=== PATIENT | female | born 1980 | race Caucasian/White ===

== ENCOUNTER 2017-11-28 12:26 | Emergency (ER) | payer OTHER ==
[2017-11-28 12:38] VITALS: BP 126/83; PULSE 92; RESP 18; TEMP 98.2
--- NOTE | 2017-11-28 12:54 | ED ---
Eye Problem HPI - General Chief complaint: Eye Problems Stated complaint: Eye Swelling, Rash Time Seen by Provider: 11/28/17 12:41 Source: patient, RN notes reviewed, old records reviewed Mode of arrival: ambulatory Limitations: no limitations - History of Present Illness Initial comments: Patient is a 37-year-old female presents emergency Department with left eye pain and swelling. She has a stye. She said history of styes before. She's been doing warm compresses over the area with little improvement. Patient states that she has no pain with extraocular eye movements. Denies any significant headache. She does have a history of a stroke, and she does have poor right vision since that time. However her affected eye with the swelling is simply her good eye. Patient states that she had a minor drainage from the eye. Patient denies any fever or chills.Patient denies any recent fever, chills , shortness of breath, chest pain, back pain, abdominal pain, nausea vomiting, numbness or tingling, dysuria or hematuria, constipation or diarrhea, headaches or any other current symptoms - Related Data Previous Rx's Medication Instructions Recorded Cephalexin [Keflex] 500 mg PO Q8HR #21 cap 11/28/17 Erythromycin Ophth Oint [Romycin 1 applic LEFT EYE QID #1 tube 11/28/17 Ophth Oint] Hydrocortisone Cream 1 applic TOPICAL BID #60 gm 11/28/17 [Hydrocortisone 1% Cream] Allergies Allergy/AdvReac Type Severity Reaction Status Date / Time No Known Allergies Allergy Verified 11/28/17 12:37 Review of Systems ROS Statement: Those systems with pertinent positive or pertinent negative responses have been documented in the HPI. ROS Other: All systems not noted in ROS Statement are negative. Past Medical History Past Medical History: No Reported History Additional Past Medical History / Comment(s): vertigo History of Any Multi-Drug Resistant Organisms: None Reported Past Surgical History: Appendectomy, Section, Cholecystectomy Past Psychological History: No Psychological Hx Reported Smoking Status: Current every day smoker Past Alcohol Use History: None Reported Past Drug Use History: Marijuana General Exam - General Exam Comments Initial Comments: Patient is a 37-year-old female. Alert and oriented. No significant distress. Limitations: no limitations General appearance: alert, in no apparent distress Head exam: Present: atraumatic, normocephalic, normal inspection Eye exam: Present: normal appearance, PERRL, EOMI, periorbital swelling ( Patient has minimal swelling over the left upper eyelid consistent with blepharitis.). Absent: scleral icterus, conjunctival injection ENT exam: Present: normal exam, normal oropharynx, mucous membranes moist Neck exam: Present: normal inspection. Absent: tenderness, meningismus, lymphadenopathy Respiratory exam: Present: normal lung sounds bilaterally. Absent: respiratory distress, wheezes, rales, rhonchi, stridor Cardiovascular Exam: Present: regular rate, normal rhythm, normal heart sounds. Absent: systolic murmur, diastolic murmur, rubs, gallop, clicks Neurological exam: Present: alert, oriented X3, CN II-XII intact Psychiatric exam: Present: normal affect, normal mood Skin exam: Present: warm, dry, intact, normal color, rash (Is a erythematous papular rash over the chest consistent with atopic dermatitis.) Course Vital Signs 11/28/17 12:34 Temperature 98.2 F Pulse Rate 92 Respiratory 18 Rate Blood Pressure 126/83 O2 Sat by Pulse 100 Oximetry Medical Decision Making - Medical Decision Making Patient is a 29-year-old female chief complaint of irritation over her left eye. She reports some swelling over the upper eyelid. No pain with extraocular eye movements. Patient's symptoms are consistent with blepharitis. She does report some minimal swelling over the periorbital region. Frandy the Patient on glass in eye ointment as well as Keflex. Discussed appropriate follow-up with primary care provider. All questions answered return parameters were discussed. Patient also completed a rash over her chest and arms consistent with atopic dermatitis. The Patient on hydrocortisone cream. Disposition Clinical Impression: Blepharitis of left upper eyelid, Atopic dermatitis Disposition: HOME SELF-CARE Condition: Good Instructions: Blepharitis (ED) Additional Instructions: Patient advised to apply that eye ointment to the eye as directed. Also take antibiotics as prescribed. Continue the warm compresses. She is a steroid cream over the areas of rash. Return to the emergency department if any alarming signs or symptoms occur. Prescriptions: Cephalexin [Keflex] 500 mg PO Q8HR #21 cap Erythromycin Ophth Oint [Romycin Ophth Oint] 1 applic LEFT EYE QID #1 tube Hydrocortisone Cream [Hydrocortisone 1% Cream] 1 applic TOPICAL BID #60 gm Is patient prescribed a controlled substance at d/c from ED?: No When asked, does pt state using other controlled substances?: No If prescribed controlled substance>3 days was MAPS reviewed?: No If opioid is for acute pain is fill amount 7 days or less?: No If Rx opioid, was Start Talking consent form obtained?: No Referrals: None,Stated [Primary Care Provider] - 1-2 days Narendra Fisher MD [STAFF PHYSICIAN] - 1-2 days Time of Disposition: 12:54
== END 2017-11-28 13:03 | disposition home or self-care (01) ==
LOC: EC 12:26
DX: H01.004 Unspecified blepharitis left upper eyelid (principal); L20.9 Atopic dermatitis, unspecified; F17.200 Nicotine dependence, unspecified, uncomplicated
CPT/HCPCS: 99283

== ENCOUNTER → 2020-01-17 | Outpatient (CLI) | payer OTHER ==
--- NOTE | 2020-01-17 16:19 | XR ---
EXAMINATION TYPE: XR lumbosacral spine min 4V DATE OF EXAM: 01/17/2020 COMPARISON: None HISTORY: Neck pain TECHNIQUE: Five-view lumbar spine FINDINGS: There 5 lumbar-type vertebral bodies. Pedicles are intact. Some disc space narrowing at L4- 5 is present. Remaining disc heights are preserved. Vertebral body heights are preserved.. IMPRESSION: 1. Mild L4-5 degenerative disc change
== END | disposition home or self-care (01) ==
LOC: RADXRMAIN 14:20
PROVIDERS: ATTEND Family Medicine
DX: M51.36 Other intervertebral disc degeneration, lumbar region (principal)
CPT/HCPCS: 72110

== ENCOUNTER → 2020-02-20 | Outpatient (CLI) | payer OTHER ==
[2020-02-20 15:44] LABS: T4, Free (Free Thyroxine) 0.9 ng/dL (0.80-1.80)
== END | disposition home or self-care (01) ==
LOC: LABWHC1 09:45
PROVIDERS: ATTEND Nurse Practitioner Family
DX: E04.1 Nontoxic single thyroid nodule (principal)
CPT/HCPCS: 36415; 84439; 84443; 84481

== ENCOUNTER → 2020-04-08 | Outpatient (CLI) | payer OTHER ==
--- NOTE | 2020-04-08 13:43 | MM ---
Reason for exam: screening (asymptomatic). Baseline mammogram. History: Family history of breast cancer in maternal grandmother and breast cancer in mother. Physical Findings: Nurse did not find any significant physical abnormalities on exam. MG Screening Mammo w CAD Bilateral CC and MLO view(s) were taken. The breast tissue is heterogeneously dense. This may lower the sensitivity of mammography. Asymmetric densities right CC view. Small asymmetric density medial left CC view. These results were verbally communicated with the patient and result sheet given to the patient on 04/08/20. ASSESSMENT: Incomplete: need additional imaging evaluation, BI-RAD 0 RECOMMENDATION: Special view mammogram of both breasts.
--- NOTE | 2020-04-08 13:45 | MM ---
Reason for exam: additional evaluation requested from abnormal screening. History: Family history of breast cancer in maternal grandmother and breast cancer in mother. Physical Findings: Breast exam preformed at baseline screening. MG Work Up Mamm w CAD BILAT Bilateral spot compression CC and LM view(s) were taken. The breast tissue is heterogeneously dense. This may lower the sensitivity of mammography. Right only the 1.1cm 12 o'clock focal asymmetry persists, ultrasound recommended. Tiny 4mm circumscribed nodularity medially persists but not identified on MLO or lateral. 6 month follow up recommended. These results were verbally communicated with the patient and result sheet given to the patient on 04/08/20. ASSESSMENT: Incomplete: need additional imaging evaluation, BI-RAD 0 RECOMMENDATION: Ultrasound of the right breast. (12 o'clock)
--- NOTE | 2020-04-08 13:48 | USB ---
Reason for exam: additional evaluation requested from abnormal screening. History: Family history of breast cancer in maternal grandmother and breast cancer in mother. US Breast Workup Limited RT Right limited breast ultrasound including focal area of concern, retroareolar and axilla demonstrates a 0.4 x 0.3 x 0.2cm oval, cystic lesion at 11 o'clock, duct ectasia at 12 o'clock, a 0.7 x 0.9 x 0.4cm oval, lymph node at 1 o'clock, may correspond to the questioned mammographic area and a 2.3 x 1.3 x 0.7cm lymph node at axilla. Right breast scanned 11-2 o'clock. 6 month follow up mammogram recommended to reassess the 12 o'clock site. These results were verbally communicated with the patient and result sheet given to the patient on 04/08/20. ASSESSMENT: Probably benign, BI-RAD 3 RECOMMENDATION: Follow-up diagnostic mammogram of the right breast in 6 months.
== END | disposition home or self-care (01) ==
LOC: RADMAMWWP 10:22
PROVIDERS: ATTEND Family Medicine
DX: Z12.31 Encounter for screening mammogram for malignant neoplasm of breast (principal); R92.8 Other abnormal and inconclusive findings on diagnostic imaging of breast
CPT/HCPCS: 77066; 77067

== ENCOUNTER → 2020-04-19 | Outpatient (CLI) | payer OTHER ==
--- NOTE | 2020-04-20 10:32 | US ---
EXAMINATION TYPE: US thyroid st tissue head/neck DATE OF EXAM: 04/19/2020 COMPARISON: NONE CLINICAL HISTORY: Thyroid Nodule. possible nodule GLAND SIZE: Right Lobe: 5.7 x 1.4 x 1.8 cm Overall Parenchyma: homogenous Left Lobe: 4.7 x 1.5 x 2.0 cm Overall Parenchyma: homogeneous Isthmus Thickness: 0.3 cm NODULES RIGHT: # of nodules measured on right: 1 1. 0.7 X 0.4 x 0.4 cm hypoechoic cystic nodule at the mid pole with well-defined margins; present w ith microcalcifications. This nodule is wider than tall and shows no intranodular vascularity. Prior size: no previous LEFT: # of nodules measured on left: 0 ISTHMUS: # of nodules measured in the isthmus: 0 Bilateral neck scanned, no evidence of lymphadenopathy. Homogeneous normal-sized thyroid with 7 mm cystic nodule upper pole right thyroid noted. IMPRESSION: As above. No suspicious greater than 1 cm solid nodule.
== END | disposition home or self-care (01) ==
LOC: RADUSWWP 15:57
PROVIDERS: ATTEND Psychiatry & Neurology Neurology
DX: E04.1 Nontoxic single thyroid nodule (principal)
CPT/HCPCS: 76536

== ENCOUNTER → 2020-12-26 | Outpatient (CLI) | payer OTHER ==
--- NOTE | 2020-12-27 14:48 | MM ---
Reason for exam: follow-up at short interval from prior study. Last mammogram was performed 9 months ago. History: Family history of breast cancer in maternal grandmother and breast cancer in mother. Physical Findings: Nurse did not find any significant physical abnormalities on exam. MG 3D Diag Mammo W/Cad RT CC and MLO view(s) were taken of the right breast. Prior study comparison: April 08, 2020, bilateral MG work up mamm w CAD BILAT. April 08, 2020, bilateral MG screening mammo w CAD. The breast tissue is heterogeneously dense. This may lower the sensitivity of mammography. Multiple stable right breast nodules. These results were verbally communicated with the patient and result sheet given to the patient on 12/26/20. ASSESSMENT: Incomplete: need additional imaging evaluation, BI-RAD 0 RECOMMENDATION: Ultrasound of the right breast. (whole breast)
--- NOTE | 2020-12-27 14:57 | USB ---
Reason for exam: additional evaluation requested from abnormal screening. History: Family history of breast cancer in maternal grandmother and breast cancer in mother. US Breast RT Right complete breast ultrasound includes all four quadrants, the retroareolar region and axilla. Finding demonstrates a 0.4 x 0.3 x 0.5cm cystic lesion at 2 o'clock and a 0.5 x 0.4 x 0.5cm cystic lesion at 10 o'clock. Simple cysts, benign appearing. These results were verbally communicated with the patient and result sheet given to the patient on 12/26/20. ASSESSMENT: Probably benign, BI-RAD 3 RECOMMENDATION: Follow-up diagnostic mammogram of both breasts in 3 months. Back on schedule for March 2021.
== END | disposition home or self-care (01) ==
LOC: RADMAMWWP 14:18
PROVIDERS: ATTEND Family Medicine
DX: N63.10 Unspecified lump in the right breast, unspecified quadrant (principal); N60.01 Solitary cyst of right breast; Z80.3 Family history of malignant neoplasm of breast
CPT/HCPCS: 77065; 76641; G0279; 77061

== ENCOUNTER 2021-01-28 09:00 | Emergency (ER) | payer OTHER ==
[2021-01-28 09:18] VITALS: BP 109/81; PULSE 87; RESP 18; TEMP 98.5
[2021-01-28] MEDS ORDERED: KETOROLAC 15 MG/ML 1 ML VIAL IM STA (10:38)
[2021-01-28] MEDS ORDERED: ORPHENADRINE 30 MG/ML 2 ML VIAL IM STA (10:38)
--- NOTE | 2021-01-28 10:49 | ED ---
General Adult HPI - General Chief complaint: Neck Pain/Injury Stated complaint: Neck Pain Time Seen by Provider: 01/28/21 10:21 Source: patient, RN notes reviewed Mode of arrival: ambulatory Limitations: no limitations - History of Present Illness Initial comments: 40-year-old female presents to the emergency room for left neck pain. Patient was in the shower washing her hair when she felt a tweak in her left side of her posterior neck. Patient states it is painful and spasming. States she cannot turn her neck to the left but can turn to the right a little bit. Patient denies fevers or chills. Denies any midline neck pain. States it does go into her left shoulder as well. Patient states this happened about 3 hours ago and she was supposed to go to jury duty but had to leave because of the pain.Patient has no other complaints at this time including shortness of breath, chest pain, abdominal pain, nausea or vomiting, headache, or visual changes. - Related Data Previous Rx's Medication Instructions Recorded Cephalexin [Keflex] 500 mg PO Q8HR #21 cap 11/28/17 Erythromycin Ophth Oint [Romycin 1 applic LEFT EYE QID #1 tube 11/28/17 Ophth Oint] Hydrocortisone Cream 1 applic TOPICAL BID #60 gm 11/28/17 [Hydrocortisone 1% Cream] Cyclobenzaprine [Flexeril] 10 mg PO TID #14 tab 01/28/21 Allergies Allergy/AdvReac Type Severity Reaction Status Date / Time No Known Allergies Allergy Verified 01/28/21 09:18 Review of Systems ROS Statement: Those systems with pertinent positive or pertinent negative responses have been documented in the HPI. ROS Other: All systems not noted in ROS Statement are negative. Past Medical History Past Medical History: No Reported History Additional Past Medical History / Comment(s): vertigo History of Any Multi-Drug Resistant Organisms: None Reported Past Surgical History: Appendectomy, Section, Cholecystectomy Additional Past Surgical History / Comment(s): colonoscopy Past Psychological History: No Psychological Hx Reported Smoking Status: Never smoker Past Alcohol Use History: None Reported Past Drug Use History: Marijuana General Exam Limitations: no limitations General appearance: alert, in no apparent distress Head exam: Present: atraumatic, normocephalic, normal inspection Eye exam: Present: normal appearance, PERRL, EOMI. Absent: scleral icterus, conjunctival injection, periorbital swelling ENT exam: Present: normal exam, mucous membranes moist Neck exam: Present: tenderness (Mild tenderness to the left cervical spine paraspinal muscles.). Absent: meningismus, full ROM (Patient able to turn her neck about 30 to the right. Patient unable to rotate her neck to the left.), lymphadenopathy Respiratory exam: Present: normal lung sounds bilaterally. Absent: respiratory distress, wheezes, rales, rhonchi, stridor Cardiovascular Exam: Present: regular rate, normal rhythm, normal heart sounds. Absent: systolic murmur, diastolic murmur, rubs, gallop, clicks Extremities exam: Present: normal capillary refill (Capillary refill less than 2 seconds, radial pulse 2+ in the left upper extremity) Course Vital Signs 01/28/21 09:12 Temperature 98.5 F Pulse Rate 87 Respiratory 18 Rate Blood Pressure 109/81 O2 Sat by Pulse 98 Oximetry Medical Decision Making - Medical Decision Making 40-year-old female presents for left neck pain. Vitals are stable. HPI and physical exam is documented. Clinically consistent with torticollis. Patient given Toradol and Norflex. Will be discharged home with muscle relaxer. Will follow up with primary care and orthopedics. Will return here for any worsening symptoms. Disposition Clinical Impression: Strain of neck muscle, Torticollis Disposition: HOME SELF-CARE Condition: Good Instructions (If sedation given, give patient instructions): Spasmodic Torticollis (ED) Additional Instructions: Take muscle relaxer as directed. Do not drive or operate machinery while taking muscle relaxer. Please follow-up with your doctor in one to 2 days. Return to the emergency room for any worsening symptoms. Prescriptions: Cyclobenzaprine [Flexeril] 10 mg PO TID #14 tab Is patient prescribed a controlled substance at d/c from ED?: No Referrals: Camacho Flor Jr, DO [Primary Care Provider] - 1-2 days Time of Disposition: 10:46
== END 2021-01-28 11:24 | disposition home or self-care (01) ==
LOC: EC 09:00
DX: S16.1XXA Strain of muscle, fascia and tendon at neck level, initial encounter (principal); M43.6 Torticollis; F12.90 Cannabis use, unspecified, uncomplicated; Z90.49 Acquired absence of other specified parts of digestive tract; X50.3XXA Overexertion from repetitive movements, initial encounter
CPT/HCPCS: 99283; 96372 ×2; J2360; J1885

== ENCOUNTER → 2021-04-10 | Outpatient (CLI) | payer OTHER ==
--- NOTE | 2021-04-11 08:38 | MM ---
Reason for exam: additional evaluation requested from prior study. Last mammogram was performed 3 months ago. History: Family history of breast cancer in maternal grandmother at age 60 and breast cancer in mother at age 58. Physical Findings: Nurse did not find any significant physical abnormalities on exam. MG 3D Diag Mammo W/Cad KRISTIE Bilateral CC, MLO, and XCCL view(s) were taken. Prior study comparison: December 26, 2020, right breast MG 3d diag mammo w/cad RT. April 08, 2020, bilateral MG work up mamm w CAD BILAT. The breast tissue is heterogeneously dense. This may lower the sensitivity of mammography. There is chronic nodularity in the right breast. The right nodularity is stable for 1 year. Additional 1 year follow up recommended. No significant new findings when compared with previous films. These results were verbally communicated with the patient and result sheet given to the patient on 04/10/21. ASSESSMENT: Probably benign, BI-RAD 3 RECOMMENDATION: Follow-up diagnostic mammogram of both breasts in 1 year. Manage patient on a clinical basis. If there is any recurrent palpable area in the left breast, the patient can return for ultrasound.
== END | disposition home or self-care (01) ==
LOC: RADMAMWWP 15:06
PROVIDERS: ATTEND Family Medicine
DX: R92.2 Inconclusive mammogram (principal); Z80.3 Family history of malignant neoplasm of breast
CPT/HCPCS: 77066; G0279; 77062

== ENCOUNTER → 2021-07-29 | Outpatient (CLI) | payer OTHER ==
[2021-07-29 18:28] LABS: Basophils # (A) 0.07 X 10*3/uL (0.00-0.10); Basophils % (A) 0.8 %; Eosinophils # (A) 0.15 X 10*3/uL (0.04-0.35); Eosinophils % (A) 1.8 %; HCT 42.2 % (37.2-46.3); HGB 13.8 g/dL (12.0-15.0); Immature Grans, Automated 0.4 %; Lymphocytes # (A) 2.37 X 10*3/uL (0.90-5.00); MCH 29.6 pg (27.0-32.0); MCHC 32.7 g/dL (32.0-37.0); MCV 90.6 fL (80.0-97.0); Monocytes % (A) 7.1 %; NRBC Per 100 WBC 0 /100 WBCS (0.0-0.0); Neutrophils # (A) 5.24 X 10*3/uL (1.80-7.70); Neutrophils % (A) 61.9 %; Platelet Count 324 X 10*3/uL (140-440); RBC 4.66 X 10*6/uL (4.10-5.20); RDW 12.7 % (11.5-14.5); WBC 8.46 X 10*3/uL (4.50-10.00)
[2021-07-29 18:39] LABS: ALT 17 U/L (8-44); AST 16 U/L (13-35); Albumin 4.2 g/dL (3.8-4.9); Albumin/Globulin Ratio 1.51 (1.60-3.17); Alkaline Phosphatase 80 U/L (41-126); BUN/Creat Ratio 14.14 Ratio (12.00-20.00); Blood Urea Nitrogen 9.2 mg/dL (9.0-27.0); Calcium 8.8 mg/dL (8.7-10.3); Carbon Dioxide 17.5 mmol/L (20.0-27.5); Chloride 110 mmol/L (96-109); Chol/HDL Ratio 4.47 Ratio; Ferritin 52.7 ng/mL (10.0-291.0); Globulin 2.8 g/dL (1.6-3.3); Glucose 90 mg/dL (70-110); LDL Cholesterol,Calculated 151.1 mg/dL (0.0-131.0); Non-African American GFR(CKD) 110.4 (60.0-200.0); Potassium 4.3 mmol/L (3.5-5.5); Sodium 139 mmol/L (135-145)
== END | disposition home or self-care (01) ==
LOC: LABWHC1 10:07
PROVIDERS: ATTEND Nurse Practitioner Family
DX: Z00.00 Encounter for general adult medical examination without abnormal findings (principal); F41.8 Other specified anxiety disorders; Z68.32 Body mass index [BMI] 32.0-32.9, adult; E66.3 Overweight
CPT/HCPCS: 36415; 80053; 80061; 82306; 82728; 84439; 84443; 85025

== ENCOUNTER 2021-09-14 10:08 | Emergency (ER) | payer OTHER ==
[2021-09-14 10:20] VITALS: BP 119/55; PULSE 111; RESP 18; TEMP 98
[2021-09-14] MEDS ORDERED: KETOROLAC 15 MG/ML 1 ML VIAL IM STA (12:16)
--- NOTE | 2021-09-14 12:20 | ED ---
Back Pain HPI - General Chief Complaint: Back Pain/Injury Stated Complaint: back pain Time Seen by Provider: 09/14/21 10:57 Source: patient Limitations: no limitations - History of Present Illness Initial Comments: Patient is a 40-year-old female presenting with chief complaint of back pain. Patient has chronic back pain at baseline for which she takes tramadol and sees neurology for. Today while getting ready for work after coughing a few times she felt sudden onset sharp pain in the left lower back. She admits to sharp pain shooting down the left leg. She denies any loss of bowel or bladder control or saddle anesthesia. Patient states that bearing any weight onto the left leg provokes the sharp pain. She denies weakness, fever, chills, N/V, chest pain, SOB, abdominal pain, diarrhea. - Related Data Previous Rx's Medication Instructions Recorded Cephalexin [Keflex] 500 mg PO Q8HR #21 cap 11/28/17 Erythromycin Ophth Oint [Romycin 1 applic LEFT EYE QID #1 tube 11/28/17 Ophth Oint] Hydrocortisone Cream 1 applic TOPICAL BID #60 gm 11/28/17 [Hydrocortisone 1% Cream] Cyclobenzaprine [Flexeril] 10 mg PO TID #14 tab 01/28/21 Cyclobenzaprine [Flexeril] 10 mg PO TID PRN #20 tab 09/14/21 methylPREDNISolone Dose Pack 4 mg PO DIRECTED #1 packet 09/14/21 [Medrol Dose Pack] Allergies Allergy/AdvReac Type Severity Reaction Status Date / Time No Known Allergies Allergy Verified 09/14/21 10:15 Review of Systems ROS Statement: Those systems with pertinent positive or pertinent negative responses have been documented in the HPI. ROS Other: All systems not noted in ROS Statement are negative. Past Medical History Past Medical History: No Reported History Additional Past Medical History / Comment(s): vertigo History of Any Multi-Drug Resistant Organisms: None Reported Past Surgical History: Appendectomy, Section, Cholecystectomy Additional Past Surgical History / Comment(s): colonoscopy Past Psychological History: No Psychological Hx Reported Smoking Status: Former smoker Past Alcohol Use History: None Reported Past Drug Use History: Marijuana General Exam Limitations: physical limitation (Pain in lower back and leg.) General appearance: alert, in no apparent distress Head exam: Present: atraumatic, normocephalic, normal inspection Eye exam: Present: normal appearance, PERRL, EOMI. Absent: scleral icterus, conjunctival injection, periorbital swelling Neck exam: Present: normal inspection Respiratory exam: Present: normal lung sounds bilaterally. Absent: respiratory distress, wheezes, rales, rhonchi, stridor Cardiovascular Exam: Present: regular rate, normal rhythm, normal heart sounds. Absent: systolic murmur, diastolic murmur, rubs, gallop, clicks Back exam: Present: normal inspection, tenderness, muscle spasm, paraspinal tenderness. Absent: full ROM, CVA tenderness (R), CVA tenderness (L), vertebral tenderness Neurological exam: Present: alert, oriented X3, CN II-XII intact Psychiatric exam: Present: normal affect, normal mood Skin exam: Present: warm, dry, intact, normal color. Absent: rash Course Vital Signs 09/14/21 10:16 Temperature 98 F Pulse Rate 111 H Respiratory 18 Rate Blood Pressure 119/55 O2 Sat by Pulse 96 Oximetry Medical Decision Making - Medical Decision Making Patient is a 40-year-old female presenting with chief complaint of back pain. Patient states that this morning while getting ready she coughed several times and then felt sudden onset of extreme pain in the left lower back. Pain radiates down the leg and is tender when sitting or changing positions. There is no loss of bowel or bladder control or saddle paresthesia. On examination there is tenderness to palpation of the paraspinal muscles. Patient had a limited exam due to pain. X-ray shows no fracture, degenerative changes seen. Patient was given Toradol and Decadron here in the ER. She is discharged with a prescription for Medrol Dosepak and cyclobenzaprine. Take medication as prescribed. Follow-up with PCP and neurology in 1-2 days. Limit activity, no heavy lifting. Take Motrin and Tylenol as needed for pain relief. Report back to ER with any worsening symptoms or new onset alarming symptoms. Educated the patient on return parameters and answered all questions. Patient conveyed verbal understanding and agreed to the plan. I discussed this case with my attending Dr. Ford. - Radiology Data Radiology results: report reviewed Lumbar x-ray: Degenerative changes seen Disposition Clinical Impression: Strain of lumbar region Disposition: HOME SELF-CARE Condition: Good Instructions (If sedation given, give patient instructions): Acute Low Back Pain (ED), Chronic Back Pain (DC), Lower Back Exercises (ED) Additional Instructions: Take medications as prescribed. Take Motrin and Tylenol for pain relief as needed. Follow-up with PCP and neurology. No heavy lifting or intense exertion. Report back to ER if any worsening symptoms or new onset alarming symptoms. Prescriptions: Cyclobenzaprine [Flexeril] 10 mg PO TID PRN #20 tab PRN Reason: Pain methylPREDNISolone Dose Pack [Medrol Dose Pack] 4 mg PO DIRECTED #1 packet Is patient prescribed a controlled substance at d/c from ED?: No Referrals: Camacho Flor Jr, DO [Primary Care Provider] - 1-2 days Time of Disposition: 13:29
--- NOTE | 2021-09-14 12:39 | XR ---
EXAMINATION TYPE: XR lumbar spine 2 or 3V DATE OF EXAM: 09/14/2021 COMPARISON: 01/07/2020 HISTORY: Low back pain TECHNIQUE: Three-view lumbar spine FINDINGS: There are 5 lumbar-type vertebral bodies. The pedicles are intact. There is some disc space narrowing L4-5. Remaining disc heights are preserved. Vertebral body heights are preserved. IMPRESSION: 1. Mild degenerative disc changes L4-5.
[2021-09-14] MEDS ORDERED: DEXAMETHASONE SOD PHOSPHATE 10 MG/ML 1 ML VIAL IM STA (13:27)
== END 2021-09-14 13:47 | disposition home or self-care (01) ==
LOC: EC 10:08
DX: S39.012A Strain of muscle, fascia and tendon of lower back, initial encounter (principal); F12.90 Cannabis use, unspecified, uncomplicated; Z87.891 Personal history of nicotine dependence; X58.XXXA Exposure to other specified factors, initial encounter
CPT/HCPCS: 72100; 99283; 96372 ×2; J1100; J1885

== ENCOUNTER → 2022-03-18 | Outpatient (CLI) | payer OTHER ==
[2022-03-18 22:41] LABS: Basophils # (A) 0.05 X 10*3/uL (0.00-0.10); Basophils % (A) 0.6 %; Eosinophils % (A) 1.3 %; HGB 13.5 g/dL (12.0-15.0); Immature Grans, Automated 0.3 %; Lymphocytes # (A) 2.48 X 10*3/uL (0.90-5.00); Lymphocytes % (A) 31.7 %; MCH 29.7 pg (27.0-32.0); MCHC 32.9 g/dL (32.0-37.0); MCV 90.1 fL (80.0-97.0); Mean Platelet Volume 10.6 fL (9.5-12.2); Monocytes # (A) 0.47 X 10*3/uL (0.20-1.00); NRBC Per 100 WBC 0 /100 WBCS (0.0-0.0); Neutrophils # (A) 4.71 X 10*3/uL (1.80-7.70); Neutrophils % (A) 60.1 %; Platelet Count 327 X 10*3/uL (140-440); RBC 4.55 X 10*6/uL (4.10-5.20); RDW 12.7 % (11.5-14.5); WBC 7.83 X 10*3/uL (4.50-10.00)
[2022-03-19 02:03] LABS: ALT 38 U/L (8-44); AST 25 U/L (13-35); African American GFR (CKD) 123.9 (60.0-200.0); Albumin 4.3 g/dL (3.8-4.9); Albumin/Globulin Ratio 1.59 (1.60-3.17); Alkaline Phosphatase 91 U/L (41-126); BUN/Creat Ratio 20.43 Ratio (12.00-20.00); Blood Urea Nitrogen 14.3 mg/dL (9.0-27.0); Calcium 9.3 mg/dL (8.7-10.3); Carbon Dioxide 20.3 mmol/L (20.0-27.5); Chloride 105 mmol/L (96-109); Globulin 2.7 g/dL (1.6-3.3); Glucose 154 mg/dL (70-110); Non-African American GFR(CKD) 106.9 (60.0-200.0); Potassium 3.8 mmol/L (3.5-5.5); Sodium 137 mmol/L (135-145); Total Bilirubin <0.15 mg/dL (0.30-1.20)
[2022-03-19 02:26] LABS: Hepatitis B Surface AB- Quant 3.5 mIU/mL; Hepatitis B Surface Antibody Nonreactive (Nonreactive)
== END | disposition home or self-care (01) ==
LOC: LABWHC1 15:48
PROVIDERS: ATTEND Nurse Practitioner Family
DX: D64.9 Anemia, unspecified (principal); E87.8 Other disorders of electrolyte and fluid balance, not elsewhere classified; L40.0 Psoriasis vulgaris; B36.0 Pityriasis versicolor
CPT/HCPCS: 36415; 80053; 85025; 86480; 86706; 87350

== ENCOUNTER → 2022-11-03 | Outpatient (CLI) | payer OTHER ==
--- NOTE | 2022-11-03 18:41 | XR ---
EXAMINATION TYPE: XR chest 2V DATE OF EXAM: 11/03/2022 COMPARISON: None HISTORY: 42-year-old female L4 0.0, psoriasis vulgaris TECHNIQUE: Frontal and lateral views FINDINGS: The cardiomediastinal silhouette, aorta, and pulmonary vasculature are within normal limits. Lungs an d pleural spaces are clear. IMPRESSION: No acute cardiopulmonary process.
== END | disposition home or self-care (01) ==
LOC: RADXRMAIN 12:55
PROVIDERS: ATTEND Dermatology MOHS-Micrographic Surgery
DX: L40.0 Psoriasis vulgaris (principal)
CPT/HCPCS: 71046

== ENCOUNTER → 2022-11-24 | Outpatient (CLI) | payer OTHER | END | disposition home or self-care (01) | LOC: LABWHC1 09:10 | PROVIDERS: ATTEND Psychiatry & Neurology Neurology | DX: G93.9 Disorder of brain, unspecified (principal); H47.9 Unspecified disorder of visual pathways; H53.9 Unspecified visual disturbance; R20.0 Anesthesia of skin | CPT/HCPCS: 36415; 82040; 82042; 82784; 83873; 83916 ==

== ENCOUNTER → 2023-04-14 | Outpatient (CLI) | payer OTHER ==
[2023-04-15 02:54] LABS: ALT 21 U/L (8-44); AST 15 U/L (13-35)
[2023-04-15 04:19] LABS: Basophils # (A) 0.07 X 10*3/uL (0.00-0.10); Basophils % (A) 0.8 %; Eosinophils # (A) 0.35 X 10*3/uL (0.04-0.35); HCT 41.6 % (37.2-46.3); HGB 13.7 d/dL (12.0-15.0); Lymphocytes # (A) 3.29 X 10*3/uL (0.90-5.00); Lymphocytes % (A) 37.7 %; MCH 29.8 pg (27.0-32.0); MCHC 32.9 d/dL (32.0-37.0); MCV 90.6 FL (80.0-97.0); Mean Platelet Volume 10.7 FL (9.5-12.2); Monocytes # (A) 0.55 X 10*3/uL (0.20-1.00); Monocytes % (A) 6.3 %; NRBC Per 100 WBC 0 X 10*3/uL (0.00-0.01); Neutrophils # (A) 4.45 X 10*3/uL (1.80-7.70); Platelet Count 348 X 10*3/uL (140-440); RBC 4.59 X 10*6/uL (4.10-5.20); RDW 12.8 % (11.5-14.5); WBC 8.73 X 10*3/uL (4.50-10.00)
== END | disposition home or self-care (01) ==
LOC: LABWHC1 15:01
PROVIDERS: ATTEND Dermatology MOHS-Micrographic Surgery
DX: L40.0 Psoriasis vulgaris (principal); L40.1 Generalized pustular psoriasis; L40.59 Other psoriatic arthropathy; Z79.899 Other long term (current) drug therapy
CPT/HCPCS: 36415; 82565; 84450; 84460; 85025

== ENCOUNTER → 2023-05-20 | Outpatient (CLI) | payer OTHER ==
[2023-05-20 16:28] LABS: Chol/HDL Ratio 4.24 Ratio; LDL Cholesterol,Calculated 102.8 mg/dL (0.0-131.0)
== END | disposition home or self-care (01) ==
LOC: LABWHC1 08:43
PROVIDERS: ATTEND Dermatology MOHS-Micrographic Surgery
DX: L40.0 Psoriasis vulgaris (principal); L02.222 Furuncle of back [any part, except buttock and flank]
CPT/HCPCS: 36415; 80061

== ENCOUNTER → 2023-10-21 | Outpatient (CLI) | payer OTHER ==
--- NOTE | 2023-10-21 11:17 | XR ---
EXAMINATION TYPE: XR chest 2V DATE OF EXAM: 10/21/2023 COMPARISON: 11/03/2022 INDICATION: Psoriasis TECHNIQUE: Frontal and lateral views of the chest are obtained. FINDINGS: The heart size is normal. The pulmonary vasculature is normal. The lungs are clear. IMPRESSION: 1. No acute pulmonary process.
[2023-10-21 14:25] LABS: Basophils # (A) 0.05 X 10*3/uL (0.00-0.10); Basophils % (A) 0.8 %; Eosinophils # (A) 0.12 X 10*3/uL (0.04-0.35); Eosinophils % (A) 1.9 %; HCT 40.5 % (37.2-46.3); HGB 13.6 g/dL (12.0-15.0); Lymphocytes # (A) 1.88 X 10*3/uL (0.90-5.00); Lymphocytes % (A) 29.4 %; MCH 29.9 pg (27.0-32.0); MCHC 33.6 g/dL (32.0-37.0); Mean Platelet Volume 10.8 FL (9.5-12.2); Monocytes # (A) 0.34 X 10*3/uL (0.20-1.00); Monocytes % (A) 5.3 %; NRBC Per 100 WBC 0 X 10*3/uL (0.00-0.01); Neutrophils # (A) 3.99 X 10*3/uL (1.80-7.70); Neutrophils % (A) 62.3 %; Platelet Count 313 X 10*3/uL (140-440); RBC 4.55 X 10*6/uL (4.10-5.20); RDW 12.8 % (11.5-14.5)
[2023-10-21 15:42] LABS: ALT 15 U/L (8-44); AST 17 U/L (13-35); Chol/HDL Ratio 4.36 Ratio; LDL Cholesterol,Calculated 120.8 mg/dL (0.0-131.0)
== END | disposition home or self-care (01) ==
LOC: LABWHC1 10:03
PROVIDERS: ATTEND Nurse Practitioner Family
DX: L40.0 Psoriasis vulgaris (principal); L40.1 Generalized pustular psoriasis; L81.4 Other melanin hyperpigmentation; D22.5 Melanocytic nevi of trunk; L27.1 Localized skin eruption due to drugs and medicaments taken internally; L29.8 Other pruritus; D48.5 Neoplasm of uncertain behavior of skin; L82.1 Other seborrheic keratosis; T50.995A Adverse effect of other drugs, medicaments and biological substances, initial encounter; Z79.899 Other long term (current) drug therapy
CPT/HCPCS: 36415; 71046; 80061; 84450; 84460; 85025

== ENCOUNTER → 2024-10-04 | Outpatient (CLI) | payer OTHER ==
--- NOTE | 2024-10-05 07:31 | MM ---
Reason for Exam: Screening (asymptomatic). Last mammogram was performed 3 year(s) and 6 month(s) ago. Patient History: Menarche at age 15. First Full-Term at age 18. Maternal grandmother had breast cancer, age 60. Mother had breast cancer, age 58. Risk Values: Sudha 5 year model risk: 1.3%. NCI Lifetime model risk: 15.9%. Prior Study Comparison: 04/08/2020 Bilateral Diagnostic Mammogram, [facility]. 12/26/2020 Right Diagnostic Mammogram, [facility]. 04/10/2021 Bilateral Diagnostic Mammogram, [facility]. Tissue Density: The breasts are heterogeneously dense, which may obscure small masses. Findings: Analyzed By CAD. There is no suspicious group of microcalcifications or new suspicious mass in either breast. Stable Chronic nodularity right breast. Overall Assessment: Benign, BI-RAD 2 Management: Screening Mammogram of both breasts in 1 year. . Patient should continue monthly self-breast exams. A clinical breast exam by your physician is recommended on an annual basis. This exam should not preclude additional follow-up of suspicious palpable abnormalities. Note on Sudha scores and lifetime risk: 1. A Sudha score greater than 3% is considered moderate risk. If this is the case, consider specialist referral to assess eligibility for a risk reducing agent. 2. If overall lifetime risk for the development of breast cancer is 20% or higher, the patient may qualify for future screening with alternating mammogram and breast MRI. [facility], , 10/05/2024 7:27 AM. Electronically signed and approved by: Mook Grissom M.D. Radiologis
== END | disposition home or self-care (01) ==
LOC: RADMAMWWP 15:54
PROVIDERS: ATTEND Family Medicine
DX: Z12.31 Encounter for screening mammogram for malignant neoplasm of breast (principal); R92.333 Mammographic heterogeneous density, bilateral breasts; Z80.3 Family history of malignant neoplasm of breast
CPT/HCPCS: 77067